=== PATIENT | female | born 1970 | race Caucasian/White ===

== ENCOUNTER → 2022-11-27 16:09 | Outpatient (CLI) | payer BC, SELFPAY ==
--- NOTE | 2022-11-27 16:13 | DI.MG.S_ITS ---
BILATERAL DIGITAL SCREENING MAMMOGRAM 3D/2D WITH CAD: 11/27/2022 CLINICAL: Routine screening. No prior exams were available for comparison. There are scattered areas of fibroglandular density in both breasts (category b / 25%-50% glandular tissue). Current study was also evaluated with a Computer Aided Detection (CAD) system. There is an asymmetry in the right breast anterior depth medial region seen on the craniocaudal view only. There is an oval mass in the left breast at 11 o'clock middle depth. No other significant masses or calcifications are seen in either breast. IMPRESSION: INCOMPLETE: NEEDS ADDITIONAL IMAGING EVALUATION The asymmetry in the right breast anterior depth medial region seen on the craniocaudal view only is indeterminate. Additional views with possible ultrasound are recommended. The oval mass in the left breast at 11 o'clock middle depth is indeterminate. Additional views with possible ultrasound are recommended. If previous films are available, these can be obtained and reviewed. Based on the Tyrer Cuzick model (a risk assessment model) the patient's lifetime risk is 8.1% and her 10 year risk is 2.2%. According to the ACR, ACS, and NCCN guidelines, an annual breast MRI exam along with mammogram is recommended if the patient's lifetime risk is 20% or greater. This exam was interpreted at Station ID: [id number]. NOTE: For mammograms, a report in lay terms will be sent to the patient. Approximately 15% of breast malignancies will not be visualized mammographically. In the management of a palpable breast mass, a negative mammogram must not discourage biopsy of a clinically suspicious lesion. Electronically Signed By: Brandon Arroyo M.D. lc/:11/28/2022 15:06:22 letter sent: Additional Imaging Needed ACR BI-RADS Category 0: Incomplete 3340F
== END ==
PROVIDERS: PCP Family Medicine; Referring Provider Family Medicine; Visit Provider Family Medicine
DX: Z12.31 Encounter for screening mammogram for malignant neoplasm of breast (principal)
CPT/HCPCS: 77063; 77067

== ENCOUNTER → 2022-11-29 08:38 | Outpatient (CLI) | payer BC, SELFPAY ==
[2022-11-29 20:13] LABS: Add Manual Diff / Slide Review NO; Basophils Absolute Auto 0 /uL (0-100); Basophils Percent Auto 0.8 % (0-2); Eosinophils Absolute Auto 100 /uL (0-450); Eosinophils Percent Auto 3.1 % (2-4); Hematocrit 38.9 % (36-46); Hemoglobin 13.2 g/dL (12.0-16.0); Lymphocytes Absolute Auto 1700 /uL (1100-4500); Lymphocytes Percent Auto 46.2 % (25-40); Mean Corpuscular HGB Conc 33.8 % (30-36); Mean Corpuscular Hemoglobin 29.5 PG (26-34); Mean Corpuscular Volume 87.4 fL (80-100); Monocytes Absolute Auto 200 /uL (0-900); Monocytes Percent Auto 6.9 % (3-14); Neutrophils Absolute Auto 1500 /uL (1500-7000); Platelet Count 326 X10^3/uL (150-400); Red Blood Cell Count 4.46 X10^6/uL (4.0-5.2); Red Cell Distribution Width 14.6 % (11.6-14.8); White Blood Cell Count 3.6 X10^3/uL (4.5-11.0)
[2022-11-29 20:17] LABS: BUN Creatinine Ratio 17.2 (6-22); Blood Urea Nitrogen 11 mg/dL (7-17); C-Reactive Protein Quant < 0.5 mg/dL (<1.0); Calcium 9.4 mg/dL (8.4-10.2); Carbon Dioxide 30 mmol/L (22-32); Chloride 103 mmol/L (98-107); Cholesterol 306 mg/dL (140-199); Estimated Glomerular Filt Rate > 60 mL/min (>60); Glucose 98 mg/dL (70-100); HDL Cholesterol 91 mg/dL (40-60); HEMOLYSIS < 15 (0-50); LDL Cholesterol Calculated 196 mg/dL (<100); Potassium 4.4 mmol/L (3.4-5.1); Sodium 139 mmol/L (137-145); Triglycerides 96 mg/dL (35-150)
[2022-11-29 20:57] LABS: Erythrocyte Sedimentation Rate 8 MM/HR (0-20)
== END ==
PROVIDERS: PCP Family Medicine; Visit Provider Family Medicine
DX: E78.2 Mixed hyperlipidemia (principal); L10.0 Pemphigus vulgaris; Z13.1 Encounter for screening for diabetes mellitus; Z13.6 Encounter for screening for cardiovascular disorders
CPT/HCPCS: 80048; 80061; 85025; 85651; 86140

== ENCOUNTER → 2022-12-17 11:51 | Outpatient (CLI) | payer BC, SELFPAY ==
--- NOTE | 2022-12-17 11:53 | DI.MG.S_ITS ---
BILATERAL DIGITAL DIAGNOSTIC MAMMOGRAM 3D/2D WITH ADDITIONAL VIEWS: 12/17/2022 CLINICAL: Additional evaluation requested from prior study. Comparison is made to exams dated: 11/27/2022 mammogram - [facility], 03/08/2021 mammogram, 07/12/2020 mammogram, 07/06/2020 mammogram, and 11/02/2016 ultrasound - outside location. There are scattered areas of fibroglandular density in both breasts (category b / 25%-50% glandular tissue). There is a stable benign asymmetry in the right breast anterior depth medial region seen on the craniocaudal view only. There is a benign oval mass in the left breast at 11 o'clock middle depth. These are stable compared to newly available comparison images from 06/2020. Additional views today confirm the findings. No other significant masses or calcifications are seen in either breast. IMPRESSION: BENIGN There is no mammographic evidence of malignancy. Return to annual mammogram screening schedule is recommended. Based on the Tyrer Cuzick model (a risk assessment model) the patient's lifetime risk is 6.2% and her 10 year risk is 1.7%. According to the ACR, ACS, and NCCN guidelines, an annual breast MRI exam along with mammogram is recommended if the patient's lifetime risk is 20% or greater. This exam was interpreted at Station ID: [id number]. NOTE: For mammograms, a report in lay terms will be sent to the patient. Approximately 15% of breast malignancies will not be visualized mammographically. In the management of a palpable breast mass, a negative mammogram must not discourage biopsy of a clinically suspicious lesion. Electronically Signed By: Brandon Arroyo M.D. lc/:12/17/2022 12:29:37 letter sent: Normal Exam ACR BI-RADS Category 2: Benign Finding(s) 3342F
== END ==
PROVIDERS: PCP Family Medicine; Referring Provider Family Medicine; Visit Provider Family Medicine
DX: R92.8 Other abnormal and inconclusive findings on diagnostic imaging of breast (principal)
CPT/HCPCS: 77066; G0279

== ENCOUNTER 2023-01-17 10:55 | Day surgery (SDC) | payer BC, SELFPAY ==
--- NOTE | 2023-01-17 | PATH_ITS ---
[facility] Accession Number: [id number] No. of containers..01 Tissue . 01 Material submitted: . colon - DESCENDING POLYP . 01 Diagnosis: Descending Colon, Polypectomy: Sessile serrated adenoma. [facility] 01/24/2023 1608 Local . 01 Electronically signed: . Karla Jones MD, Pathologist NPI- [id number] . 01 Gross description: . DESCENDING POLYP: Received in formalin is 1 fragment(s) of jones, soft tissue measuring 0.7 x 0.5 x 0.2 cm submitted entirely in 1 cassette(s) /[facility] 01/22/2023 1548 Local . 01 Pathologist provided ICD-10: D12.4 . 01 CPT . 332253 Specimen Comment: A courtesy copy of this report has been sent to [phone] Performed at: 01 [facility] [address] [place] [address], [place], [place] [id number] MD Tunde Mcdonnell MD Phone: [phone]
[2023-01-17 11:09] VITALS: BP 97/76; PULSE 97; RESP 18; TEMP 36.2; O2SAT 99; BMI 22.8
[2023-01-17] MEDS: LACTATED RINGERS 1,000 ML 100 ML IV (11:18)
--- NOTE | 2023-01-17 12:13 | PM.HP.1 ---
History of Present Illness History of Present Illness Date Patient Seen: 01/17/23 Time Patient Seen: 12:13 Chief complaint: [facility] [place] Narrative: Kelly is a 52-year-old woman who is here for a screening colonoscopy. She has never had one before. No known family history of colon cancer. [facility] Surgical History (Updated 11/28/22 @ 20:07 by Nat Rodriguez) Amputation of toe of right foot (~1970) Anesthesia H/O right wrist surgery (~1973) History of appendectomy (~1988) History of hysterectomy (~10/2016) Family History (Updated 11/28/22 @ 20:11 by Nat Rodriguez) Mother Arachnoiditis Sarcoma Cancer History of heart disease Hyperlipidemia Stroke Grandmother Paralysis Grandfather Cancer Grandmother Kidney failure Social History household members: spouse Smoking Status: Never smoker alcohol intake: current Meds Home Medications and Allergies Allergies Allergy/AdvReac Type Severity Reaction Status Date / Time bacitracin Allergy Intermediate Numbness Verified 11/14/22 11:48 [From Neosporin ([id number])] neomycin Allergy Intermediate Numbness Verified 11/14/22 11:48 [From Neosporin ([id number])] polymyxin B Allergy Intermediate Numbness Verified 11/14/22 11:48 [From Neosporin ([id number])] Antibiotics Allergy Intermediate Hives Uncoded 11/14/22 11:48 Exam Vital Signs (past 8 hours): - 01/17/23 11:09 Temperature 97.2 F L Pulse Rate 97 H Respiratory Rate 18 Blood Pressure 97/76 Pulse Oximetry 99 Oxygen Delivery Method Room Air Oxygen Delivery Method Room Air Const General: healthy appearing Assessment & Plan Assessment and plan (1) Colon cancer screening: Status: Acute Plan We reviewed the risks and benefits of colonoscopy and she would like to proceed.
--- NOTE | 2023-01-17 13:42 | PM.OP.COLON ---
Operative Date/Time/Diagnoses Date of procedure: 01/17/23 Time of procedure: 13:42 Pre-op diagnosis: Colon cancer screening Post-op diagnosis: same Procedure & Clinicians Study performed: Colonoscopy Same procedure as scheduled: Yes Surgeon: Sridhar Magana Procedure Notes Procedure in detail: Surgeon: Sridhar Magana MD Anesthesia: Devante Beckham MD Procedure: The patient was brought to the endoscopy suite, placed in left lateral decubitus position. The patient was connected to monitoring devices. A time-out was performed. Sedation was administered. Once the patient was adequately sedated, a digital rectal exam was performed and was normal except for a small hemorrhoid. The scope was then inserted and advanced to the cecum where the appendiceal orifice was identified and photographed. The terminal ileum was intubated and no abnormalities were seen. The scope was then slowly withdrawn over greater than 6 minutes. The mucosa was thoroughly inspected. There was a 5 mm polyp in the descending colon removed with a cold snare. The scope was retroflexed in the rectum. No other abnormalities were noted. The scope was straightened and removed. The patient was awakened and brought to recovery. Scope withdrawal time: 10 minutes Sedation time: 16 minutes EBL: 3 mL Findings: 5 mm descending colon polyp Post-procedure Disposition: PACU
[2023-01-17 13:44] VITALS: BP 92/61; PULSE 72; RESP 15; TEMP 36.6; O2SAT 98
[2023-01-17 13:45] VITALS: BP 100/62; PULSE 71; RESP 20; O2SAT 97
[2023-01-17 13:49] VITALS: BP 106/64; PULSE 66; RESP 12; O2SAT 98
[2023-01-17 13:55] VITALS: BP 107/75; PULSE 72; RESP 16; O2SAT 98
== END 2023-01-17 14:01 | disposition home or self-care (01) ==
PROVIDERS: PCP Family Medicine; Referring Provider Surgery; Visit Provider Surgery
PROC: 0DJD8ZZ Inspection of Lower Intestinal Tract, Via Natural or Artificial Opening Endoscopic (ICD-10-PCS; CPT 45378; principal; 2023-01-17 12:15)
DX: Z12.11 Encounter for screening for malignant neoplasm of colon (principal); D12.4 Benign neoplasm of descending colon
CPT/HCPCS: 45385; J2704; J3010

== ENCOUNTER → 2024-06-27 10:57 | Outpatient (CLI) | payer BC, SELFPAY ==
--- NOTE | 2024-06-27 | DI.MG.S_ITS ---
BILATERAL DIGITAL SCREENING MAMMOGRAM 3D/2D WITH CAD: 06/27/2024 CLINICAL: Routine screening. Comparison is made to exams dated: 11/27/2022 mammogram - [facility], 03/08/2021 mammogram, and 07/12/2020 mammogram - outside location. There are scattered areas of fibroglandular density (category b / 25%-50% glandular tissue). Current study was also evaluated with a Computer Aided Detection (CAD) system. No significant masses, calcifications, or other findings are seen in either breast. There has been no significant interval change. IMPRESSION: NEGATIVE There is no mammographic evidence of malignancy. A 1 year screening mammogram is recommended. Based on the Tyrer Cuzick model (a risk assessment model) the patient's lifetime risk is 6.2% and her 10 year risk is 1.9%. According to the ACR, ACS, and NCCN guidelines, an annual breast MRI exam along with mammogram is recommended if the patient's lifetime risk is 20% or greater. This exam was interpreted at Station ID: [id number]. NOTE: For mammograms, a report in lay terms will be sent to the patient. Approximately 15% of breast malignancies will not be visualized mammographically. In the management of a palpable breast mass, a negative mammogram must not discourage biopsy of a clinically suspicious lesion. Electronically Signed By: Devante tse/corrie:06/29/2024 07:12:09 letter sent: Normal Exam ACR BI-RADS Category 1: Negative
== END ==
LOC: MAMMO 10:58
PROVIDERS: PCP Family Medicine; Referring Provider Family Medicine; Visit Provider Family Medicine
DX: Z12.31 Encounter for screening mammogram for malignant neoplasm of breast (principal)
CPT/HCPCS: 77063; 77067